=== PATIENT | female | born 1950 | race Caucasian/White ===

== ENCOUNTER 2017-05-07 09:24 | Outpatient (CLI) | payer MEDICARE, BC ==
[~2017-05-07 09:24] MED LIST: ASPI-1265 PO; ATEN25TA PO; CALC500T63 PO; CRAN1TAB3 PO; EST1T PO; FLAX100025 PO; FLUT1DIS4 INH; INSU100V36 SQ; MAGN400C PO; MULT-1074 PO; PANT-47 PO; PRAV20TA4 PO
== END 2017-05-07 23:59 | disposition home or self-care (01) ==
LOC: VAS 09:24
PROVIDERS: ATTEND Family Medicine
DX: R60.0 Localized edema (principal); I10 Essential (primary) hypertension; J45.909 Unspecified asthma, uncomplicated; E10.9 Type 1 diabetes mellitus without complications
CPT/HCPCS: 93971

== ENCOUNTER 2019-05-05 09:38 | Day surgery (SDC) | payer MEDICARE ==
[~2019-05-05 09:38] MED LIST changes: -FLAX100025 PO; +FLAX10007 PO
[2019-05-05] MEDS ORDERED: LIDOcaine 1%/PF 5ML 10 MG/ML VIAL ONE (11:09)
[2019-05-05] MEDS ORDERED: mupirocin 2% ointment 22GM ONE (11:46)
== END 2019-05-05 12:07 | disposition home or self-care (01) ==
LOC: WOUND CARE 09:38
PROVIDERS: ATTEND Surgery
DX: C44.619 Basal cell carcinoma of skin of left upper limb, including shoulder (principal); E10.10 Type 1 diabetes mellitus with ketoacidosis without coma; E10.319 Type 1 diabetes mellitus with unspecified diabetic retinopathy without macular edema; K21.9 Gastro-esophageal reflux disease without esophagitis; J45.909 Unspecified asthma, uncomplicated; I10 Essential (primary) hypertension
CPT/HCPCS: 11603; 82948; A4663

== ENCOUNTER 2020-08-22 06:41 | Day surgery (SDC) | payer MEDICARE ==
[2020-08-21 12:57] LABS: BASOPHILS % (AUTO) 0.7 % (0-1); EOSINOPHILS # (AUTO) 0.1 X10'3 (0-0.9); EOSINOPHILS % (AUTO) 2.1 % (0-6); HEMATOCRIT 41.9 % (35.0-45.0); LYMPHOCYTES % (AUTO) 39.1 % (21-51); MEAN CORPUSCULAR HEMOGLOBIN 30.1 PG (27.0-31.0); MEAN CORPUSCULAR HGB CONC 33.4 g/dL (33.0-36.5); MEAN CORPUSCULAR VOLUME 90.1 FL (78-98); MEAN PLATELET VOLUME 7.4 FL (7.4-10.4); MONOCYTES # (AUTO) 0.5 X10'3 (0-0.9); MONOCYTES % (AUTO) 9.3 % (2-12); NEUTROPHILS # (AUTO) 2.5 X10'3 (1.8-7.7); NEUTROPHILS % (AUTO) 48.8 % (42-75); PLATELET COUNT 204 X10'3 (140-440); RED BLOOD COUNT 4.65 X10'6 (4.20-5.60); RED CELL DISTRIBUTION WIDTH 13.1 % (11.5-14.5); WHITE BLOOD COUNT 5.1 X10'3 (4.5-11.0)
[2020-08-21 13:06] LABS: PARTIAL THROMBOPLASTIN TIME 24 SECONDS (22-32)
[2020-08-21 13:10] LABS: ALBUMIN 3.1 G/DL (3.4-5.0); ANION GAP 4 (8-16); BLOOD UREA NITROGEN 20 MG/DL (7-18); BUN/CREATININE RATIO 19.4 (6.6-38.0); CALCIUM 9.7 MG/DL (8.5-10.1); CHLORIDE 104 MMOL/L (99-107); CREATININE 1.03 MG/DL (0.40-0.90); GLUCOSE 92 MG/DL (70-104); SODIUM 140 MMOL/L (135-145); TOTAL CARBON DIOXIDE 32.1 MMOL/L (24-32); eGFR 53 ML/MIN
[2020-08-22] VITALS (14 sets, daily range): BP systolic 114–150; BP diastolic 58–80
[~2020-08-22] VITALS: Ht 167.6 cm; Wt 74.8 kg
[2020-08-22] MEDS ORDERED: VITAMIN D3 PO (07:20)
[2020-08-22] MEDS ORDERED: PANT40TA54 PO (07:20)
[2020-08-22] MEDS ORDERED: GABA-530 PO (07:20)
[2020-08-22] MEDS ORDERED: VITAMIN B12 (07:20)
[2020-08-22] MEDS ORDERED: INSULIN PUMP (07:20)
[2020-08-22] MEDS ORDERED: INSU100V13 SQ (07:21)
[2020-08-22] MEDS ORDERED: FLUT1BLS10 INH (07:23)
[2020-08-22] MEDS ORDERED: CHLO473M2 (07:23)
[2020-08-22] MEDS ORDERED: diphenhydrAMINE 25mg capsule PO ONE (08:15)
[2020-08-22] MEDS ORDERED: LORazepam 0.5 MG tablet PO PRN (08:15)
[2020-08-22] MEDS ORDERED: normal saline 1000ml 1,000 ML IV SCH (08:20)
[2020-08-22] MEDS ORDERED: midazolam 1 mg/ML 2ml injection ONE (08:48)
[2020-08-22] MEDS ORDERED: fentaNYL/PF 50MCG/1 ML 2ML syringe ONE (08:48)
[2020-08-22] MEDS ORDERED: iohexol 350 MG/ML 50ML vial IV ONE (08:49)
[2020-08-22] MEDS ORDERED: iohexol 350MG/ML 100ml bottle IV ONE (08:49)
[2020-08-22] MEDS ORDERED: LIDOcaine 1% (10mg/ml)w/preservative injection 20ml MDV ONE (08:49)
[2020-08-22] MEDS ORDERED: nitroGLYCERIN 0.4mg SUBLingual tab SL PRN (10:30)
[2020-08-22] MEDS ORDERED: dextrose ORAL solution 15 GM/59 ML bottle PO PRN ×2 (10:30)
[2020-08-22] MEDS ORDERED: glucagon, human recombinant 1mg kit SUBCUT PRN (10:30)
[2020-08-22] MEDS ORDERED: dextrose 50%-water 50ml dispensing syringe IV PRN ×2 (10:30)
[2020-08-22] MEDS ORDERED: insulin Lispro (HumaLOG) vial - multi-dose SQ SCH (10:30)
[2020-08-22] MEDS ORDERED: HYDROcodone/acetaminophen 10/325mg tab PO PRN (11:15)
[2020-08-22] MEDS ORDERED: HYDROcodone/acetaminophen 5mg/325mg tablet PO PRN (11:15)
[2020-08-22] MEDS ORDERED: proCHLORperazine 10 MG/2 ml inj IV PRN (11:15)
[2020-08-22] MEDS ORDERED: OXAZEpam 15mg capsule PO PRN (11:15)
[2020-08-22] MEDS ORDERED: ondansetron/PF 4mg/2ml inj IV PRN (11:15)
[2020-08-22] MEDS ORDERED: insulin glargine (Lantus) pen - multi-dose SQ SCH (21:00)
== END 2020-08-22 17:05 | disposition home or self-care (01) ==
LOC: SSTAY O 06:41
PROVIDERS: ATTEND Internal Medicine Cardiovascular Disease
DX: R94.39 Abnormal result of other cardiovascular function study (principal); I25.10 Atherosclerotic heart disease of native coronary artery without angina pectoris; E11.40 Type 2 diabetes mellitus with diabetic neuropathy, unspecified; K21.9 Gastro-esophageal reflux disease without esophagitis; I27.20 Pulmonary hypertension, unspecified; I10 Essential (primary) hypertension; E78.5 Hyperlipidemia, unspecified; G89.29 Other chronic pain; M47.9 Spondylosis, unspecified; Z98.890 Other specified postprocedural states; Z86.73 Personal history of transient ischemic attack (TIA), and cerebral infarction without residual deficits; Z96.651 Presence of right artificial knee joint; Z87.891 Personal history of nicotine dependence; Z98.1 Arthrodesis status; Z79.01 Long term (current) use of anticoagulants; Z79.899 Other long term (current) drug therapy
CPT/HCPCS: 36415; 71046; 80048; 82948; 85025; 85610; 85730; 93005; 93458; 99152; C1760; C1769; J1644; J1815; J2001; J2250; J3010; J7030; Q0163; Q9967; 99153; A4620; A6258

== ENCOUNTER 2022-09-05 09:54 | Outpatient (CLI) | payer MEDICARE ==
[~2022-09-05 09:54] MED LIST changes: +CHLO473M2; +FLUT1BLS10 INH; +GABA-530 PO; +INSU100V13 SQ; -INSU100V36 SQ; -PANT-47 PO; +PANT40TA54 PO; +VITAMIN B12; +VITAMIN D3 PO
[2022-09-05 10:26] LABS: TOTAL HEMOGLOBIN 11.6 G/dl (12.0-16.0)
[2022-09-05] MEDS ORDERED: albuterol 2.5 MG/3 ML nebule NEB ONE (10:50)
== END 2022-09-05 23:59 | disposition home or self-care (01) ==
LOC: RT 09:54
PROVIDERS: ATTEND Internal Medicine Pulmonary Disease
DX: J45.998 Other asthma (principal); R94.2 Abnormal results of pulmonary function studies
CPT/HCPCS: 85018; 94060; 94727; 94729; 94760; A4565

== ENCOUNTER → 2023-11-06 | Outpatient (CLI) | payer MEDICARE | END | disposition home or self-care (01) | LOC: RAD 13:21 | PROVIDERS: ATTEND Dietitian, Registered | DX: R13.14 Dysphagia, pharyngoesophageal phase (principal) | CPT/HCPCS: 74230 ==